=== PATIENT | female | born 1990 | race Caucasian/White ===

== ENCOUNTER → 2024-01-26 10:02 | Day surgery (SDC) | payer BC, SELFPAY ==
[2024-01-25 23:42] VITALS: BP 120/70
[2024-01-26] VITALS (7 sets, daily range): BP systolic 92–127; BP diastolic 44–84; BMI 24.9
--- NOTE | 2024-01-26 00:18 | ED.GENMED ---
History of Present Illness
General
Chief Complaint: Throat Problem
Source: patient
Exam Limitations: none
Time Seen by Provider: 01/26/24 00:13
Travel History
Have you had any contact with someone who has COVID-19?: No
Do you have any symptoms of coronavirus? Fever > 100 degrees, chills, cough, shortness of breath, sore throat, loss of taste or smell, muscle aches, or headache?: No
History of Present Illness
History of Present Illness:
This is a 33 year old female that comes in with c/o feeling like there is a fish bone stuck in her neck. States that they went out for dinner and eat around 8:30-9pm. States that she feels that there is a fish bone stuck on the right sided of her
throat. States that she is able to drink and swallow her own saliva. Denies any fever, chills, chest pain, SOB, abd pain, nausea, vomiting, diarrhea, headache, dizziness.
Past History
Past History
ED Past Medical History: Other (Mastitis, )
ED Past Surgical History: and Orthopedic (Bilateral knee arthroscopy)
Social History
Tobacco: Non-smoker
Alcohol: Occasional
Personal:
Living: with family
Review of Systems
Review of Systems
All Other Systems: ROS reviewed and negative except as documented in HPI and ROS
Constitutional: Reports no symptoms; Denies fever or chills
EENT: Reports other (Feels like a fish bone is stuck on the right sided of her throat)
Respiratory: Reports no symptoms
Cardiac: Reports no symptoms; Denies chest pain
ABD/GI: Reports no symptoms; Denies abdominal pain, nausea, vomiting or diarrhea
: Reports no symptoms
Musculoskeletal: Reports no symptoms
Skin: Reports no symptoms
Neurological: Reports no symptoms; Denies dizzy or headache
Psychiatric: Reports no symptoms
Phy Exam
General Physical Exam
General Presentation: well appearing and no apparent distress
General age: appears stated age
General Skin: warm and dry
General Habitus: normal
General Mental: alert
ENT Exam
ENT Exam: TM's normal, pharynx normal, neck supple and other (No visible sign of fish bone)
Eye Exam
Eye Exam: EOMI
Cardiovascular Exam
Cardiovascular Exam: regular rate/rhythm, no edema, no murmur and normal peripheral pulses
Pulmonary Exam
Pulmonary Exam: lungs clear, no respiratory distress, no rales, chest non tender, no crackles, no rhonchi, no wheezing and no cough
Musculoskeletal Exam
Musculoskeletal Exam: full ROM
Skin Exam
Skin Exam: normal color, warm/dry, no rash and no petechia
Psychiatric Exam
Psychiatric Exam: normal mood/affect
Course
Orders/Labs/Results
Orders:
Orders
01/26/24 00:18
Neck Soft Tissue [CR Soft Tissue Neck ] Urgent
Comment:
Reason For Exam: Feels like fish bone stuck right sided of neck
01/26/24 09:04
Midazolam HCl [Versed] 2 mg .ROUTE .STK-MED ONE
01/26/24 11:00
Acetaminophen [Tylenol] 650 mg PO SDS-Q4HPRN PRN
Oxycodone [Roxicodone] 5 mg PO SDS-Q4HPRN PRN
Vital Signs
Initial and Last Documented VS:
Initial Vital Signs
Temp Pulse Resp BP Pulse Ox
98 F 96 18 120/70 100
01/25/24 23:42 01/25/24 23:42 01/25/24 23:42 01/25/24 23:42 01/25/24 23:42
Last Documented Vital Signs
Temp Pulse Resp BP Pulse Ox
98 F 60 16 106/74 99
01/26/24 10:40 01/26/24 10:40 01/26/24 10:40 01/26/24 10:40 01/26/24 10:40
MDM/Problems Addressed
Differential Diagnosis Includes:
Fish bone stuck in Throat. Scratch of the esophagus.
MDM/Problems Addressed:
This is a 33 year old female that comes in with c/o a fish bone stuck in her throat. States that they went out to eat and eat around 8:30-9pm. States that it is stuck on the right sided of her throat.
Will get Soft tissue neck.
Back into see patient. Explained that there does appear to be fish bone stuck. Contacted Dr Cordova and he will come in at 7am to see patient and if needed take her to the OR and remove. Attempted to send X-ray to [facility]. Patient will remain in the
emergency room till morning.
Chronic conditions affecting care:
NA
Acute Exacerbation and/or Progression of Chronic Illness:
NA
*Radiology
Radiology exam reviewed: preliminary read by ED provider (Soft tissue neck- Fish bone noted. ) and radiology read reviewed (Soft tissue neck sent to [facility]- Concern for thin slightly radiopaque foreign body in the region of the vallecula on the
lateral view measuring 14mm in length possibly a fishbone given history. There is no frontal view. Consider direct visualization. No air within the soft tissues. .)
*Pulse Oximetry
Patient hypoxic: no
*EKG
Interpreted by ED Provider?: NA
Rate: EKG- N/A
*City Solicitor Interpretation
Rate: City Solicitor- N/A
*Critical Care Note
Total Time (30-74mins, 75-104mins- exclusive of procedures): Not Applicable
ED Attending Note
-
Portions of this chart may have been created with voice recognition software.� Occasional wrong word or��sound alike� substitutions may have occurred due to the inherent limitations of voice recognition software.
Discharge Plan
Departure
Patient Disposition: OR
Admit to: Med/Surg
Presentation/result/management discussed w/ accepting MD/DO: Dr. Cordova
Patient with high blood pressure during this ER visit?: No
Condition: Good
Covid-19: Not Applicable
Discharge Problem:
Throat problem
Interventions
Interventions:
*Risk Screen - Suicide Last Done: 01/25/24 23:42
*General Assessment Last Done: 01/26/24 00:21
*Neglect/Abuse Screening Last Done: 01/25/24 23:42
ED- Fall Risk Assessment Last Done: 01/26/24 00:21
*ED COVID-19 Vaccine History Last Done: 01/26/24 00:21
*Nursing Disposition Last Done: 01/26/24 09:46
ED-EENT Assessment Last Done: 01/26/24 00:21
ED- Pulmonary Assessment Last Done: 01/26/24 00:21
Discharge Date and Time
Discharge Date/Time: 01/26/24 09:15
--- NOTE | 2024-01-26 08:01 | CON.MD ---
Consultation - Medical
-
Pt seen and consult dictated.
Foreign body in throat, a fish bone.
Laryngoscopy visualizes it.
Will proceed with removal in OR under brief fish.
--- NOTE | 2024-01-26 09:06 | CON.MD ---
Addendum entered and electronically signed by Stew Cordova MD 01/26/24 09:13:
This report is done in error, will remove.
Original Note:
Consultation - Medical
-
Pt seen and full consult dictated.
CT reviewed.
He is feeling much better this AM.
Exam and imaging c/w tonsillitis but no abscess.
He is improving with medical mgt and it is unlikely he will need surgical drainage.
Continue present management and possible discharge tomorrow if he continues to improve.
--- NOTE | 2024-01-26 09:55 | SUR.PHASEI ---
Rec'd sleepy on stretcher with HOB elevated low fowlers on arrival, oriented x 3 by RN, able to pronounce A and E trach midline, no crepitus felt in neck or upper chest, positioned for comfort, denies c/o
--- NOTE | 2024-01-26 10:02 | SUR.PHASEI ---
Sleeping arouses easily, denies c/o
--- NOTE | 2024-01-26 10:20 | SUR.PHASEI ---
Awake, HOB elevated midfowlers, voice quality strong, swallowing freely, denies c/o, richie ice chips well
--- NOTE | 2024-01-26 10:33 | SUR.PHASEI ---
sitting up talking, richie ice chips well
== END ==
LOC: EMR 01-25 23:40 → PACU 10:02
PROVIDERS: ATTENDING PHYSICIAN Otolaryngology; EMERGENCY PHYSICIAN Student in an Organized Health Care Education/Training Program; FAMILY PHYSICIAN Internal Medicine
DX: T18.128A Food in esophagus causing other injury, initial encounter (principal); Y93.89 Activity, other specified
CPT/HCPCS: 31530; 70360; 99284

== ENCOUNTER → 2024-01-28 16:25 | Outpatient (REF) | payer BC, SELFPAY ==
[2024-02-02 05:54] LABS: HPV, High Risk Not Detected; HPV, High Risk Source Cervical
== END ==
LOC: CLAB 16:25
PROVIDERS: ATTENDING PHYSICIAN Advanced Practice Midwife
DX: Z01.419 Encounter for gynecological examination (general) (routine) without abnormal findings (principal); Z12.4 Encounter for screening for malignant neoplasm of cervix; Z11.3 Encounter for screening for infections with a predominantly sexual mode of transmission; Z11.51 Encounter for screening for human papillomavirus (HPV)
CPT/HCPCS: 87624; G0123

== ENCOUNTER → 2024-03-18 07:13 | Outpatient (REF) | payer BC, SELFPAY ==
[2024-03-18 08:29] LABS: % Basophils 0.7 % (0-2); % Eosinophils 1.8 % (0-6); % Immature Granulocytes 0.2 % (0-0.5); % Lymphocytes 35.4 % (20.5-51.1); % Monocytes 10.8 % (1.7-9.3); % Neutrophils 51.1 % (42.2-75.2); Absolute Eosinophils 0.1 10^3/uL (0-0.7); Absolute Lymphocytes 1.6 10^3/uL (1.2-3.4); Absolute Monocytes 0.5 10^3/uL (0.1-0.6); Absolute Neutrophils 2.3 10^3/uL (1.4-6.5); Hematocrit 40.1 % (37.0-47.0); Hemoglobin 13.5 g/dL (12.0-16.0); Mean Corp Hgb Conc. 33.7 g/dL (33.0-37.0); Mean Corpuscular Hgb 29.8 pg (27.0-31.0); Mean Corpuscular Volume 88.5 fL (81.0-99.0); Mean Platelet Volume 10.6 fL (7.4-10.4); Nucleated Red Blood Cells % 0 %; Platelet Count 157 10^3/uL (130-400); Red Blood Cell Count 4.53 10^6/uL (4.20-5.40); Red Cell Dist. Width 13.5 % (11.5-14.5); White Blood Cell Count 4.4 10^3/uL (4.8-10.8)
[2024-03-18 10:13] LABS: ALT (SGPT) 21 U/L (0-35); AST (SGOT) 26 U/L (14-36); Albumin 4.7 g/dl (3.5-5.0); Alkaline Phosphatase 86 U/L (38-126); Blood Urea Nitrogen 16 mg/dl (7-17); Calcium 9.8 mg/dl (8.4-10.2); Carbon Dioxide 26 mmol/L (22-30); Chloride 105 mmol/L (98-107); Glucose 89 mg/dl (70-99); HDL Cholesterol 85 mg/dl; Iron 110 ug/dl (37-170); LDL Cholesterol, Calculated 83 mg/dl; Potassium 4.2 mmol/L (3.5-5.1); Sodium 140 mmol/L (135-145); Total Bilirubin 0.7 mg/dl (0.2-1.3); Total Cholesterol 177 mg/dl (50-199); Total Protein 7.6 g/dl (6.3-8.2); Triglyceride 45 mg/dl (10-149); Very Low Density Lipoprotein 9 mg/dl (0-30); eGFR > 60.00
[2024-03-18 10:22] LABS: Percent Saturation 33 % (20-50); Total Iron Binding Capacity 331 ug/dl (265-497)
[2024-03-18 10:40] LABS: Ferritin 12.4 ng/ml (6.24-137)
[2024-03-18 11:12] LABS: Folate > 20.0 ng/ml (2.76-20)
[2024-03-18 12:12] LABS: Vitamin B12 430 pg/ml (239-931)
== END ==
LOC: REG 07:13
PROVIDERS: ATTENDING PHYSICIAN Family Medicine
DX: Z00.00 Encounter for general adult medical examination without abnormal findings (principal); D51.9 Vitamin B12 deficiency anemia, unspecified; D72.819 Decreased white blood cell count, unspecified; E53.8 Deficiency of other specified B group vitamins; R23.3 Spontaneous ecchymoses
CPT/HCPCS: 36415; 80053; 80061; 82607; 82728; 82746; 83540; 83550; 84443; 85025

== ENCOUNTER → 2025-04-27 15:56 | Outpatient (REF) | payer BC, SELFPAY | LOC: CPAP 15:56 | PROVIDERS: ATTENDING PHYSICIAN Advanced Practice Midwife | DX: Z01.419 Encounter for gynecological examination (general) (routine) without abnormal findings (principal); Z11.51 Encounter for screening for human papillomavirus (HPV) | CPT/HCPCS: 87624 ==